=== PATIENT | male | born 1995 | race Two or more races ===

== ENCOUNTER 2019-03-30 11:49 | Emergency (ER) | payer OTHER ==
[2019-03-30] MEDS ORDERED: EPINEPHrine/Lidocaine/Tetracai 3 ML ML TOP ONE (12:21)
--- NOTE | 2019-03-30 12:34 | EDM.PDOC ---
ED HPI GENERAL MEDICAL PROBLEM - General Chief Complaint: Skin Complaint Stated Complaint: KNOT OF LEFT SIDE Time Seen by Provider: 03/30/19 12:06 Source of Information: Reports: Patient History Limitations: Reports: No Limitations - History of Present Illness INITIAL COMMENTS - FREE TEXT/NARRATIVE: The patient presents with a groin abscess. He noticed a red area yesterday and not it is much worse with pain and redness. It is in the left symphysis pubic area. He has no fever, chills, cough, chest pain, shortness of breath, abdominal pain, nausea or vomiting. He had smaller sores like this before. Onset: Gradual Duration: Day(s): Location: Reports: Pelvis Quality: Reports: Sharp Severity: Moderate Improves with: Reports: None Worsens with: Reports: None Associated Symptoms: Reports: No Other Symptoms Left Pelvic Pain Score (Numeric/FACES): 10 - Related Data Allergies Allergy/AdvReac Type Severity Reaction Status Date / Time No Known Allergies Allergy Verified 03/30/19 12:06 Home Meds: Home Meds Doxycycline [Vibramycin] 100 mg PO BID #20 cap 03/30/19 [Rx] Past Medical History - Past Health History Medical/Surgical History: Denies Medical/Surgical History Social & Family History - Tobacco Use Smoking Status *Q: Current Every Day Smoker Years of Tobacco use: 6 Packs/Tins Daily: 0.5 - Caffeine Use Caffeine Use: Reports: Energy Drinks, Soda, Tea ED ROS GENERAL - Review of Systems Review Of Systems: See Below Constitutional: Reports: No Symptoms HEENT: Reports: No Symptoms Respiratory: Reports: No Symptoms Cardiovascular: Reports: No Symptoms Endocrine: Reports: No Symptoms GI/Abdominal: Reports: No Symptoms : Reports: No Symptoms Musculoskeletal: Reports: No Symptoms Skin: Reports: Other (Abscess to the groin) ED EXAM, SKIN/RASH Exam: See Below Exam Limited By: No Limitations General Appearance: Alert, No Apparent Distress Ears: Normal External Exam Nose: Normal Inspection Head: Atraumatic, Normocephalic Neck: Normal Inspection Respiratory/Chest: No Respiratory Distress (Male) Exam: Other (fluctuant abscess to the skin to the left of the pubic symphysis with erythema and edema) Back Exam: Normal Inspection Extremities: Normal Inspection Neurological: Alert, Oriented, No Motor/Sensory Deficits ED SKIN PROCEDURES - I&D Site: Left pubic area Skin Prep: Chlorhexidine (Hibiciens) Local Anesthesia: Lidocaine: 1% with EPI (And LET) Local Anesthetic Volume: 2cc Area Incised With: 11 Blade Drainage: Purulent, Bloody, Large Amount Probed to Break Up Loculations: Yes Packed With: 1/4 in. Iodoform (Regular packing) Sterile Dressing: Adhesive Dressing Complications: No Course - Vital Signs Last Recorded V/S: Last Vital Signs Temp 99.0 F 03/30/19 12:04 Pulse 83 03/30/19 12:04 Resp 16 03/30/19 12:04 BP 144/82 H 03/30/19 12:04 Pulse Ox 98 03/30/19 12:04 - Orders/Labs/Meds Meds: Medications Discontinued Medications Generic Name Dose Route Start Last Admin Trade Name Emmie PRN Reason Stop Dose Admin Lidocaine/Epinephrine 20 ml 03/30/19 12:41 03/30/19 12:53 Xylocaine 1% With Epinephrine 1:100,000 INJECT 03/30/19 12:42 20 ml ONETIME ONE Administration Lidocaine/Tetracaine 3 ml 03/30/19 12:21 03/30/19 12:46 Let Soln TOP 03/30/19 12:22 3 ml ONETIME ONE Administration - Re-Assessments/Exams Free Text/Narrative Re-Assessment/Exam: 03/30/19 12:34 I had my nurse put some LET on the wound. 03/30/19 13:05 I was able to use the US to confirm the abscess. I drained it and I will get him on some doxy. 03/30/19 13:07 Departure - Departure Time of Disposition: 13:10 Disposition: Home, Self-Care 01 Condition: Good Clinical Impression: Abscess - Discharge Information *PRESCRIPTION DRUG MONITORING PROGRAM REVIEWED*: No *COPY OF PRESCRIPTION DRUG MONITORING REPORT IN PATIENT JOHN: No Prescriptions: Doxycycline [Vibramycin] 100 mg PO BID #20 cap Referrals: PCP,None [Primary Care Provider] - Rosita Coon PA-C [Physician Account Administrator] - 1 Week Forms: ED Department Discharge Additional Instructions: Clean the area 2 times per day with warm soapy water. Have the packing removed in 5 days. If it falls out early that is fine. Take the doxycycline 2 times per day for 10 days. Take motrin or tylenol for pain. Put warm compresses on the affected area 2 times per day. Please return if you are worse. Follow up with Evette Coon in our clinic.
[2019-03-30] MEDS ORDERED: Lidocaine 1% with EPINEPHrine 1:100,000 20 ML MDV INJECT ONE (12:41)
== END 2019-03-30 13:17 | disposition home or self-care (01) ==
LOC: JD.ED 11:49
DX: L02.214 Cutaneous abscess of groin (principal); F17.210 Nicotine dependence, cigarettes, uncomplicated
CPT/HCPCS: 10061; 87075; 87205; 99282-25; 99283